=== PATIENT | male | born 1950 | race Asian ===

== ENCOUNTER 2017-08-19 09:24 | Day surgery (SDC) | payer BC, OTHER ==
[2017-08-19] MEDS ORDERED: FENTAnyl 50 MCG/ML VIAL (12:17)
[2017-08-19] MEDS ORDERED: MIDAZOLAM 1 MG/ML 2 ML INJ ×2 (12:17)
== END 2017-08-19 14:23 | disposition home or self-care (01) ==
LOC: GIL 09:24
DX: Z12.11 Encounter for screening for malignant neoplasm of colon (principal); K64.8 Other hemorrhoids; I10 Essential (primary) hypertension
CPT/HCPCS: 45378